=== PATIENT | male | born 2000 | race Two or more races ===

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

== ENCOUNTER 2022-02-03 11:52 | Emergency (ER) | payer SELFPAY ==
[~2022-02-03] VITALS: Ht 170.2 cm; Wt 63.5 kg
[2022-02-03 12:07] VITALS: BP 128/72
== END 2022-02-03 12:32 | disposition left against medical advice (07) ==
LOC: ER 11:52
DX: M54.59 Other low back pain (principal); Z53.21 Procedure and treatment not carried out due to patient leaving prior to being seen by health care provider